=== PATIENT | male | born 1970 | race Caucasian/White ===

== ENCOUNTER 2017-01-11 17:39 | Emergency (ER) | payer MEDICAID ==
[~2017-01-11] VITALS: Ht 172.7 cm; Wt 72.6 kg
[~2017-01-11 17:39] MED LIST: ASPI-1271 PO; ATOR20TA40 PO; CIPR250T3 PO; LAC PO
[2017-01-11 17:45] VITALS: BP 120/72
[2017-01-11] MEDS ORDERED: FAMOTIDINE 20 MG TAB PO ONE (18:10)
[2017-01-11] MEDS ORDERED: ALUMINUM HYD/MAG/SIMETHICONE 30 ML UDC PO ONE (18:10)
[2017-01-11] MEDS ORDERED: ONDANSETRON 4 MG ODT PO ONE (18:10)
[2017-01-11 18:33] LABS: BASOPHILS # (AUTO) 0.4 K/uL (0.00-0.22); EOSINOPHILS # (AUTO) 0.1 K/uL (0-0.4); HEMATOCRIT 49.9 % (36-52); HEMOGLOBIN 16.6 g/dL (12.0-18.0); LYMPHOCYTES # (AUTO) 1.3 K/uL (2.0-11.5); MEAN CORPUSCULAR HEMOGLOBIN 31 pg (27-31); MEAN CORPUSCULAR HGB CONC 33 g/dL (33-37); MEAN CORPUSCULAR VOLUME 92 fL (80-94); MONOCYTES # (AUTO) 0.8 K/uL (0.8-1.0); NEUTROPHILS # (AUTO) 3.8 K/uL (1.8-7.7); PLATELET COUNT (AUTO) 251 K/uL (140-450); RED BLOOD CELL COUNT(AUTO) 5.43 MIL/uL (4.20-6.10); RED CELL DISTRIBUTION WIDTH 12.6 % (11.6-13.7); WHITE BLOOD COUNT (AUTO) 6.4 K/uL (4.8-10.8)
[2017-01-11 18:44] LABS: ANION GAP 11.7 (8-16); CARBON DIOXIDE 28.3 mmol/L (21-32); CREATININE 0.8 mg/dL (0.7-1.3)
[2017-01-11 18:51] LABS: ALBUMIN 3.8 g/dL (3.4-5.0); TOTAL BILIRUBIN 1.3 mg/dL (0.0-1.0)
[2017-01-11 19:40] VITALS: BP 137/78
== END 2017-01-11 19:31 | disposition home or self-care (01) ==
LOC: MED 17:39
DX: K29.60 Other gastritis without bleeding (principal); R07.89 Other chest pain; F41.9 Anxiety disorder, unspecified; I10 Essential (primary) hypertension; E78.00 Pure hypercholesterolemia, unspecified; Z79.899 Other long term (current) drug therapy
CPT/HCPCS: 36415; 71010; 80053; 81002; 83690; 84484; 85025; 93005; 99285; S0119